=== PATIENT | female | born 1985 | race Caucasian/White ===

== ENCOUNTER → 2016-11-10 | Outpatient (CLI) | payer OTHER ==
[~2016-11-10] MED LIST: IBUP-15 PO; PNV1CAPS13 PO
--- NOTE | 2016-11-10 14:27 | Diagnostic Imaging Report ---
INDICATION: Size and dates. TECHNIQUE: Multiple real-time grayscale images were obtained over the gravid uterus. COMPARISON: None FINDINGS: Single fetus is identified currently in transverse presentation. Placenta is anterior. No previa is present. The tip is about 2 cm from the internal cervical os. anatomic survey was negative. Biometrical measurements are as follows: Biparietal 4.3 cm, age 19 weeks 2 days. Head circumference 15.9 cm, age 18 weeks 6 days. Abdominal circumference 13.2 cm, age 18 weeks 6 days. Femur length 2.7 cm, age 18 weeks 3 days. Estimated Weight: 246 gm (+/- 36 gm). heart rate: 155 beats per minute. SHERI 16.3 IMPRESSION: : 1. Single live intrauterine with an average ultrasound age of 18 weeks 6 days +/- 2 weeks. 2. size is approximately equal to dates. Dictated by: Dictated on workstation # [id number]
== END ==
LOC: RAD 10:22
PROVIDERS: ATTEND Family Medicine
DX: O36.8920 Maternal care for other specified fetal problems, second trimester, not applicable or unspecified (principal); Z3A.18 18 weeks gestation of pregnancy
CPT/HCPCS: 76805